=== PATIENT | female | born 1970 | race Two or more races ===

== ENCOUNTER → 2019-06-17 | Day surgery (SDC) | payer OTHER ==
[~2019-06-17] MED LIST: CHOL100013 PO; FERR325T14 PO; FLUT9.9S NS; GLUC1TAB71 PO; IV RINGERS,LACTATED 1000ML 1,000 ML IV ONE; LIDOCAINE 2% PF 5 ML VIAL. ONE; MULT1TAB52 PO; OMEP20TA8 PO; PROPOFOL 60 ML IV ONE; RANI-376 PO
--- NOTE | 2019-06-17 12:22 | PREOP HP ---
DATE OF SERVICE: 06/17/2019 REQUESTING PHYSICIAN: Dr. Kimberly Hubbard. PRIMARY CARE PHYSICIAN: Dr. Kimberly Hubbard. REASON FOR PROCEDURE: Reflux and colorectal cancer screening. HISTORY OF PRESENT ILLNESS: This is a 49-year-old female who presents for evaluation of her reflux disease as well as for colorectal cancer screening. She admits to daily bowel movement and denies any family history of colon cancer. She has been taking an antacid, which has helped with her reflux. PAST MEDICAL HISTORY: Reflux. ALLERGIES: No known drug allergies. FAMILY MEDICAL HISTORY: Significant for pancreatic cancer and ovarian cancer in her mother. SOCIAL HISTORY: No tobacco, alcohol, or IV drug abuse. HOME MEDICATIONS: MAR was reviewed. REVIEW OF SYSTEMS: A 13-point review of systems was done and is positive as per HPI, and otherwise negative. PHYSICAL EXAMINATION: VITAL SIGNS: She is afebrile. Her vital signs are stable. GENERAL: She is a well-developed, well-nourished female, in no apparent distress. HEENT: Her oropharynx is clear. CARDIOVASCULAR: S1, S2. LUNGS: Clear. ABDOMEN: Normoactive bowel sounds, soft, nontender, nondistended. EXTREMITIES: No edema. NEUROLOGIC: Awake, alert, and oriented x 3. ASSESSMENT AND PLAN: 1. Colorectal cancer screening: The risks and benefits of the procedures, including bleeding, perforation, non-diagnosis, and sedation were explained and she has agreed to proceed. 2. Reflux: The risks and benefits of upper endoscopy were explained, including bleeding, perforation, non-diagnosis, and sedation and she has agreed to proceed. Thank you for allowing me to participate in the care of this patient. CURLY CHAVEZ MD DR: BEATRIZ/ginny JOB#: [id number] / [id number] [facility] CURLY CHAVEZ MD
[2019-06-17 12:25] VITALS: BP 127/83
--- NOTE | 2019-06-18 19:06 | PATHOLOGY ---
[facility] Accession Number: [id number] . 01 Material submitted: . PART A: small bowel - SMALL BOWEL BX PART B: stomach - BX GASTRIC ANTRUM AND BODY PART C: esophagus - DISTAL ESOPHAGUS BX. Modifiers: distal . 01 Clinical history: . Reflux, screening . 02 Diagnosis: A. Small bowel biopsies: - No significant pathologic abnormalities. . B. Gastric biopsies, gastric antrum and gastric body: - Chronic gastritis, mild. . C. Esophageal biopsies, distal esophagus: - Segments of hyperplastic squamous esophageal mucosa, esophagogastric mucosa, and gastric mucosa showing moderate chronic inflammation, consistent with reflux esophagitis. . (JPM:mml; 06/18/2019) [facility]/06/18/2019 . 02 Comment: Sections of the small bowel biopsy reveal segments of duodenal and small intestine mucosa. Where best oriented, the mucosal villi show no sprue-like changes or significant inflammatory changes. . Sections of the gastric biopsy reveal segments of gastric body and antral/body transition mucosa showing congestion and mild chronic inflammation. A properly-controlled immunoperoxidase stain for Helicobacter is negative for Helicobacter organisms. . Sections of the distal esophageal biopsy reveal segments of hyperplastic squamous esophageal mucosa, esophagogastric mucosa, and gastric mucosa showing moderate chronic inflammation. There is no evidence of Nowak's change, dysplasia or malignancy. . Special stain (B1): Immunoperoxidase stain for Helicobacter . (JPM:mml; 06/18/2019) . 02 Electronically signed: . Lucas Morales MD, Pathologist NPI- [id number] . 01 Gross description: . A. The specimen is received in formalin, labeled "Aviladeparga, Paola, small bowel BX", are a few segments of currie soft tissue measuring 0.5 x 0.4 x 0.1 cm in aggregate. Entirely submitted in A1. . B. The specimen is received in formalin, labeled " Aviladeparga, Paola, BX gastric antrum and body", are four fragments of currie soft tissue measuring 0.7 x 0.5 x 0.2 cm in aggregate. Entirely submitted in B1. . C. The specimen is received in formalin, labeled " Aviladeparga, Paola, distal esophagus BX", are few fragments of currie-page soft tissue measuring 0.5 x 0.5 x 0.1 cm in aggregate. Entirely submitted in C1. ([facility]; 06/17/2019) [facility] . 02 Pathologist provided ICD-10: K29.50, K21.0 . 02 CPT . 843481, 381821, 563312, [id number] Specimen Comment: A courtesy copy of this report has been sent to Specimen Comment: [phone], . Specimen Comment: Report sent to / DR ERICKSON Performed at: 01 [facility] [address], [place] [id number] MD Nate Tripathi MD Phone: [phone] Performed at: 02 [facility] [address] [place], [place] [id number] MD Lucas Morales MD Phone: [phone]
== END ==
LOC: SURG 10:33
PROVIDERS: ATTEND Internal Medicine Gastroenterology
DX: Z12.11 Encounter for screening for malignant neoplasm of colon (principal); K29.50 Unspecified chronic gastritis without bleeding; K21.0 Gastro-esophageal reflux disease with esophagitis; K64.0 First degree hemorrhoids; K63.89 Other specified diseases of intestine
CPT/HCPCS: 43239; 45378; 81025; 88305; 88342; J2001; J2704